=== PATIENT | female | born 1950 | race Caucasian/White ===

== ENCOUNTER 2018-10-05 08:46 | Day surgery (SDC) | payer OTHER, SELFPAY ==
--- NOTE | 2018-09-25 14:26 | HP.PCM_ITS ---
History and Physical Date of Admission: 09/25/18 Pre-Op History and Physical ? HPI: The patient is a 68 year old female presenting for pre-operative visit. She is scheduled for hysteroscopy D&C and poossible polypectomy, for PMB, likely polyp on 09/28/18. ??Procedure discussed along with risks, benefits and complications. ?Other alternatives discussed for management. Consent form signed? Yes. ? ? ? PAST MEDICAL HISTORY PAST MEDICAL HISTORY Diagnosis Date ? Obesity ? ? ? PAST SURGICAL HISTORY PAST SURGICAL HISTORY Procedure Laterality Date ? DELIVERY ONLY ? ? ? , low transverse x 2 ? HYSTEROSCOPY BX W/WO D&C ? 2013 ? PAST SURGICAL HISTORY OF ? 2010 ? left knee arthroscope ? REMOVAL ADENOIDS,PRIMARY,<12 Y/O ? ? ? Adenoidectomy ? REMOVAL OF TONSILS,<12 Y/O ? ? ? Tonsillectomy ? ? CURRENT MEDICATIONS ? Current Outpatient Prescriptions: VITAMIN E ORAL Take by mouth. Disp: Rfl: ascorbic acid (VITAMIN C ORAL) Take by mouth. Disp: Rfl: cholecalciferol, vitamin D3, (VITAMIN D3 ORAL) Take by mouth. Disp: Rfl: medroxyPROGESTERone (PROVERA) 10 mg tablet Take 1 tablet by mouth once daily for 10 days. (Patient not taking: Reported on 09/25/2018 ) Disp: 10 tablet Rfl: 0 ? No current facility-administered medications for this visit. ? ALLERGIES: Patient has no known allergies. ? PERSONAL HISTORY: SOCIAL HISTORY Social History ??Marital status: ?Spouse name: ?Years of education: ?Number of children: ? Occupational History Occupation ?Employer ?Comment ? [employer]ARD OF [employer]* ? Social History Main Topics ??Smoking status: Current Some Day Smoker ?Packs/day: 0.00 ?Years: 0.00 ?Smokeless tobacco: Never Used ?Alcohol use: Yes ?Comment: occ ??Drug use: No ?Sexual activity: No ? Social History Narrative ?? to Floyd, dtr Jazz and son Kee, 3 grandchildren and [address] (granddtr from [place]ee due May 2015) ? ? FAMILY HISTORY: FAMILY HISTORY FAMILY HISTORY Problem Relation Age of Onset ? Heart Mother ? at 90 ? Kidney Disease Father ? ? Heart Father ? 89 ? Colon Cancer Maternal Grandfather ? ? REVIEW OF SYMPTOMS: GENERAL: denies fevers or chills ENDOCRINOLOGY: has not been on steroids Cardiology : denies palpitations or chest pain Respiratory: denies SOB or cough Hematology: denies history of prolonged bleeding or easy bruising or VTE Allergy: Denies history of personal or family history of allergy to anesthesia ? ? PHYSICAL EXAMINATION: ? VITALS: There were no vitals taken for this visit. ? GENERAL: ?The patient is well nourished, well hydrated in no acute distress. ?, The patient is oriented to time, place, and person. NECK: Supple. No lynphadenopathy, normal thyroid, no thyromegaly. LUNGS: Clear to auscultation bilaterally. no wheezes, rhonchi or rales HEART: Regular rate and rhythm, Normal heart sounds and No murmurs or gallops ? IMPRESSION: PMB, endometrial polyp ? PLAN: ??The risks/benefits/alternatives and personal involved for the planned hysteroscopy dilation and curettage and possible polyp resection?were reviewed with the patient. Her questions were answered to her satisfaction and she desires to proceed. ?Consent was signed. ?I reviewed with her postop instructions and expectations. ? ? I have reviewed and updated past medical and surgical history, medications and allergies Jackie Mustafa M.D.
--- NOTE | 2018-10-05 | IMM_PTH ---
PATIENT: GRACIE TEJADA [place] [facility] [place][id number] AGE/SX: 68/F ROOM: RE10/05/[address]: Dr. Jackie Mustafa MD : 1950 BED: DIS: 10/05/2018 SPEC #: [id number] RECD: 10/09/18 13:09 STATUS: MERRY RELukas #: [id number] MAINOR: 10/05/18 00:[address]: Jackie Mustafa DEPT: IMMUNOHISTOCHEMISTRY RECD BY: Shaunna Isidro ENTERED: 10/09/18 13:10 SP TYPE: IMMUNO OTHR DR: Dr. Demetri Andrews, DO Tissues: Endometrium, NOS Procedures: SMA (add) CK19 (add) DESMIN (add) ENRIQUE (add) KI-67 (add) P53 (add) Vimentin (add) SMM (add) Pankeratin (initial) PHYSICIAN & INSTITUTION [place] [address] SPECIMEN INFORMATION: Tissue Source: Endometrial curettings and polyp Clinical Info: Postmenopausal bleeding, endometrial polyp Specimen Number: [id number] #2 CPT code: 75727, 86495 x8 METHODOLOGY: Deparaffinized sections of prefer/formalin-fixed tissue or PAP/DQ stained slides are incubated with monoclonal/polyclonal antibodies/oligonucleotide probes. Localization is made via biotin free immunoperoxidase method. Appropriate controls are performed and reacted as expected. Results on target cell population are indicated in the following table: RESULTS: ANTIBODY / CLONE RESULT Block 2 AE1-3 (AE1/AE3/PCK26) positive, focal Actin (1A4) positive Vimentin (V9) positive Myosin (simms1) positive Desmin (CE-R-11) positive CK19 (A53-B/A2.26) positive, focal Ki-67 (30-9) positive, low ENRIQUE (E29) negative P53 (DO-7) positive, focal These tests were developed and their performance characteristics determined by [facility]. They may not have been cleared or approved by the U.S. Food and Drug Administration. The FDA has determined that such clearance or approval is not necessary. INTERPRETATION: Endometrial curettings and polyp: Consistent with fragments of symplastic leiomyoma. AM:anahi 10/10/18 Case has been reviewed in consultation with Dr. Lazar who concurs with the above diagnosis. IDC:DARIUSZ
--- NOTE | 2018-10-05 | EMB_PTH ---
PATIENT: GRACIE TEJADA LOC: [facility] – [place] U#:[id number] AGE/SX: 68/F ROOM: RE10/05/[address]: Dr. Jackie Mustafa MD : 1950 BED: DIS: 10/05/2018 SPEC #: [id number] RECD: 10/05/18 09:36 STATUS: MERRY JORDON #: [id number] MAINOR: 10/05/18 00:[address]: Jackie Mustafa DEPT: SURGICAL PATHOLOGY RECD BY: Guy Mojica ENTERED: 10/06/18 09:37 SP TYPE: ENDOM BX/C GABRIELE DR: Dr. Demetri Andrews, DO Tissues: Endometrium, NOS Procedures: Surgery Specimen Level IV HEADER OPERATION: Hysteroscopy, D & C, polyp resection PRE-OP DIAGNOSIS: Postmenopausal bleeding, endometrial polyp TISSUE SUBMITTED: Endometrial curettings and polyp MICROSCOPIC DIAGNOSIS Endometrial polyp and curettings: Polypoid fragments of endometrium with simple hyperplasia without atypia. Fragments of myometrial stromal nodule with changes suggestive of a symplastic leiomyoma. See comment. AM:anahi 10/09/18 COMMENT Immunohistochemistry ([id number]) supports the above diagnosis. Case has been reviewed in consultation with Dr. Lazar who concurs with the above diagnosis. IDC:DARIUSZ MICROSCOPIC DESCRIPTION Slides are reviewed. GROSS DESCRIPTION Received in fixative is one container labeled with the patient's name and designated endometrial curettings and polyp. The specimen consists of multiple irregular fragments of hancock, indurated tissue mixed with blood clot that in aggregate measure 5 x 3 x 0.3 cm. The entire specimen is submitted in two cassettes. / DARIUSZ:anahi 10/06/18 TC:? CPT: 46199 ADDENDUM ADDENDUM 10/11/2018 10:42 ADDENDUM 10/11/2018 10:42 ADDENDUM 10/11/2018 10:42 ADDENDUM 10/11/2018 10:42 ADDENDUM 10/31/2018 09:49 ADDENDUM 10/11/2018 10:42 This case was reviewed and diagnosis discussed with Dr. Mustafa on 10/11/18 at 9:45 a.m. This addendum is added to incorporate an outside pathology consultation report. The case was examined at [facility] (#[id number]) and the following diagnosis was rendered. Endometrial polyp and curettings: Fragments of endometrial polyp. Fragments of inactive endometrium with focal stromal pseudo-decidualization consistent with exogenous progestin effect. Fragments of smooth muscle tumor with atypia. Please see complete above mentioned consultation report in EMR
[2018-10-05 09:26] LABS: Hemoglobin 12.8 g/dl (12.0-15.0); Mean Corpuscular Hgb 26.1 pg (27.0-32.0); Mean Corpuscular Volume 81.5 fL (81-99); Platelet Count 334 K/mm3 (150-450); RBC Distribution Width CV 14.7 % (11.6-14.6); RBC Distribution Width SD 43.7 fl (35.1-43.9); Red Blood Count 4.91 M/mm3 (4.2-5.4); Scan Indicated on CBC? Y/N NO; White Blood Count 7.6 K/mm3 (4.4-11.0)
[2018-10-05 09:37] LABS: Anion Gap 9 (5-15); BUN 17 mg/dL (7-18); BUN/Creat Ratio 20.8 RATIO (10-20); Calcium,Total 8.7 mg/dL (8.5-10.1); Chloride 106 mmol/L (98-107); Creatinine, Serum 0.82 mg/dL (0.55-1.02); EST Glomerular Filtration Rate 74 mL/min (>60); Est Glom Filt Rate - Afr Amer 89 mL/min (>60); Glucose 103 mg/dL (74-106); Potassium 4.1 mmol/L (3.5-5.1); Sodium Level 138 mmol/L (136-145)
[2018-10-05 09:44] VITALS: BP 182/66; PULSE 84; RESP 18; TEMP 36.8; O2SAT 99; BMI 37.6
[2018-10-05 12:04] VITALS: BP 139/85; BP 182/66; PULSE 71; RESP 18; TEMP 36.4; O2SAT 96
--- NOTE | 2018-10-05 12:09 | DCINST_ITS ---
Discharge Diet: No Restrictions Discharge Activity: Return to Normal Activity, May Shower, May Take a Tub Bath - in 2 weeks. Return to work on:: 10/09/18 May shower in (days): 1 May resume sexual activity in: 2 weeks Call your doctor if your incision/area has: Continuous Slow Oozing, Sudden Increased Bleeding, Foul Smelling Discharge Call your doctor if you observe: Fever of 101 or Higher, Using more than one pad per hour - for 2 hrs peter row Allergies/Adverse Reactions: Allergies No Known Allergies Allergy (Verified 09/21/18 13:50) Medications to take at Discharge Ascorbic Acid [Vitamin C] 1,000 mg PO DAILY 09/21/18 Eye Vitamin 1 cap PO DAILY 09/21/18 Vitamin E 400 unit PO DAILY 09/21/18 Ibuprofen [Motrin] 600 mg PO Q6H PRN #60 tablet 10/05/18 Oxycodone HCl/Acetaminophen [Percocet 5/325] 1 - 2 tablet PO Q8 PRN 3 Days #8 tablet 10/05/18 The following prescriptions were given: Oxycodone HCl/Acetaminophen [Percocet 5/325] 1 - 2 tablet PO Q8 PRN 3 Days #8 tablet PRN Reason: Pain Ibuprofen [Motrin] 600 mg PO Q6H PRN #60 tablet PRN Reason: Pain Primary Care Physician: Demetri Andrews DO [Primary Care Provider] - Test Results: Test results from this visit will be discussed in further detail at your follow- up appointment, if applicable.
--- NOTE | 2018-10-05 12:13 | OP.PCM_ITS ---
Report of Operation Date of Procedure: 10/05/18 Pre-Operative Diagnosis: Postmenopausal bleeding, thickened endometrium Post-Operative Diagnosis: Same this endometrial polyp and submucosal uterine fibroid Surgery/Procedure Performed:: Ostomy dilation and curettage with resection of endometrial polyp and partial resection of fibroid Description of Surgical Findings:: Normal-appearing cervix and vagina, endometrial cavity with polypoid appearing lesion in the fundus x2 that were small. Some hypertrophy of the endometrium in the lower uterine segment, on the left lateral uterine wall there appeared to be a submucosal fibroid extending into the cavity violent crimes detective: None Type of Anesthesia:: General Anesthesiologist: Sue Shook Special Medications: None Specimen's removed: Endometrial curettings and polyp Drains: None Estimated Blood Loss (mL): 40 Fluids Replaced: 1200 cc Description of Procedure: The patient was taken to the OR where she was prepped and draped in dorsal lithotomy position. The weighted speculum was placed in the vagina and the anterior lip of the cervix was grasped with a single-tooth tenaculum. A paracervical block was administered with [1% lidocaine with 1-100,000 epinephrine solution]. The cervix was dilated serially with Hegar dilators. The [5mm] hysteroscope was placed into the uterine cavity and the above findings were noted. Bilateral tubal ostia [were] identified. The hysteroscope was removed. The Symphion device was readied and inserted. After approximately 1 minute of resection with this device, the device that it detected a leak. We attempted to resect the device but were unable to get good flow through the tubing. Used a minimal amount of fluid from the bag at this point. The decision was made to convert to the [facility] hysteroscopic resection device. This device was set up and readied and I used the loop to resect the endometrium throughout the cavity and the polyps. I also shaved off part of the submucosal fibroid to make the cavity shape normal. The instruments were removed from the vagina. The specimen was handed off and sent to pathology. All sponge and needle counts were correct. Vaginal sweep was performed by me. The patient was awakened and taken to the recovery room in stable condition. Hysteroscopic ins: 2000cc normal saline Hysteroscopic outs:1600cc Grafts/Implants Used: None - Complications None
[2018-10-05 12:15] VITALS: BP 127/82; BP 182/66; PULSE 67; RESP 18; O2SAT 99
[2018-10-05 12:20] VITALS: BP 129/77; BP 182/66; PULSE 65; RESP 18; TEMP 36.6; O2SAT 95
[2018-10-05 12:40] VITALS: BP 182/66
== END 2018-10-05 13:33 | disposition home or self-care (01) ==
LOC: SDC 08:49 → AC 08:55
PROVIDERS: Family Provider Student in an Organized Health Care Education/Training Program; PCP Student in an Organized Health Care Education/Training Program; Referring Provider Obstetrics & Gynecology; Visit Provider Obstetrics & Gynecology
PROC: 0UB98ZZ Excision of Uterus, Via Natural or Artificial Opening Endoscopic (ICD-10-PCS; CPT 58558; principal; 2018-10-05 09:55)
DX: N84.0 Polyp of corpus uteri (principal); N95.0 Postmenopausal bleeding; D25.0 Submucous leiomyoma of uterus; F17.200 Nicotine dependence, unspecified, uncomplicated
CPT/HCPCS: 00952; 58558; 36415; 80048; 85027; 86850; 86900; 88305; 88341; 88342; J7120; J2405

== ENCOUNTER 2018-11-16 14:45 | Observation (INO) | payer OTHER, SELFPAY ==
--- NOTE | 2018-11-10 11:09 | PCM.HP.BLA ---
History and Physical Date of Admission: 11/16/18 Pre-Op History and Physical HPI: The patient is a 68 year old female presenting for pre-operative visit. She is scheduled for TVH with BSO, uterosacral ligament fixation, cystoscopy and possible laparoscopy for ovary removal, for persistent postmenopausal bleeding, uterine fibroids, leiomyoma w/ bizzare nuclei on 11/16/18. Procedure discussed along with risks, benefits and complications. Other alternatives discussed for management. Consent form signed? Yes. PAST MEDICAL HISTORY Diagnosis Date ? Obesity PAST SURGICAL HISTORY Procedure Laterality Date ? DELIVERY ONLY , low transverse x 2 ? HYSTEROSCOPY BX W/WO D&C 2013 ? HYSTEROSCOPY, SURGICAL; WITH SAMPLI 10/06/2018 hysteroscopy D&C w/ polypectomy and had large submucosal fibroid ? PAST SURGICAL HISTORY OF 2010 left knee arthroscope ? REMOVAL ADENOIDS,PRIMARY,<12 Y/O Adenoidectomy ? REMOVAL OF TONSILS,<12 Y/O Tonsillectomy Current Outpatient Medications: azithromycin (ZITHROMAX Z-GUNNAR) 250 mg tablet Take 2 tablets day one, then, 1 tablet daily until gone. Disp: 1 Package Rfl: 0 VITAMIN E ORAL Take by mouth. Disp: Rfl: ascorbic acid (VITAMIN C ORAL) Take by mouth. Disp: Rfl: cholecalciferol, vitamin D3, (VITAMIN D3 ORAL) Take by mouth. Disp: Rfl: No current facility-administered medications for this visit. ALLERGIES: Patient has no known allergies. PERSONAL HISTORY: Social History Socioeconomic History Marital status: Spouse name: Not on file Number of children: Not on file Years of education: Not on file Highest education level: Not on file Social Needs Financial resource strain: Not on file Food insecurity - worry: Not on file Food insecurity - inability: Not on file Transportation needs - medical: Not on file Transportation needs - non-medical: Not on file Occupational History Occupation: CLAIMS REPRESENTATIVE Employer: [employer] Tobacco Use Smoking status: Current Some Day Smoker Smokeless tobacco: Never Used Substance and Sexual Activity Alcohol use: Yes Comment: occ Drug use: No Sexual activity: Never Other Topics Concerns: Not on file Social History Narrative to Floyd, javan Schulz and son Kee, 3 grandchildren [address] (granddtr from [place] due May 2015) FAMILY HISTORY: FAMILY HISTORY Problem Relation Age of Onset ? Heart Mother at 90 ? Kidney Disease Father ? Heart Father 89 ? Colon Cancer Maternal Grandfather REVIEW OF SYMPTOMS: GENERAL: denies fevers or chills ENDOCRINOLOGY: has not been on steroids Cardiology : denies palpitations or chest pain Respiratory: denies SOB, some mild cough, has URI at this time, non productive Hematology: denies history of prolonged bleeding or easy bruising or VTE Allergy: Denies history of personal or family history of allergy to anesthesia PHYSICAL EXAMINATION: VITALS: There were no vitals taken for this visit. GENERAL: The patient is well nourished, well hydrated in no acute distress. , The patient is oriented to time, place, and person. NECK: Supple. No lynphadenopathy, normal thyroid, no thyromegaly. LUNGS: Clear to auscultation bilaterally. no wheezes, rhonchi or rales HEART: Regular rate and rhythm, Normal heart sounds and No murmurs or gallops 1. Neoplasm, uncertain whether benign or malignant 2. Intramural and submucous leiomyoma of uterus 3. PMB (postmenopausal bleeding 4. First degree uterine prolapse PLAN: The risks/benefits/alternatives and personal involved for the planned TVH, BSO, possible laparascopy, USLF and cystoscopy were reviewed with the patient. Her questions were answered to her satisfaction and she desires to proceed. Consent was signed. I reviewed with her postop instructions and expectations. I have reviewed and updated past medical and surgical history, medications and allergies Jackie Mustafa M.D.
[2018-11-16] VITALS (13 sets, daily range): BP systolic 88–131; BP diastolic 44–80; PULSE 66–95; RESP 16–18; TEMP 35.8–36.7; O2SAT 95–100; BMI 38.2
--- NOTE | 2018-11-16 08:19 | EKG12_ITS ---
Test Reason : PREOP Blood Pressure : / mmHG Vent. Rate : 075 BPM Atrial Rate : 075 BPM P-R Int : 130 ms QRS Dur : 084 ms QT Int : 404 ms P-R-T Axes : -01 032 074 degrees QTc Int : 451 ms Normal sinus rhythm Normal ECG When compared with ECG of 05-AUG-2010 11:37, No significant change was found Confirmed by PATRICIA VELEZ, VANESSA ([id number]), tape editor LANDEN HALL ([id number]) on 11/20/2018 1:16:35 PM Referred By: Jackie Mustafa Confirmed By:VANESSA GOMEZ MD
[2018-11-16] MEDS: Phenazopyridine 95 MG Tablet 190 MG PO (08:42)
[2018-11-16] MEDS: Celecoxib 200 MG Capsule 400 MG PO (08:45)
[2018-11-16] MEDS: Acetaminophen 500 MG Tablet 1000 MG PO ×2 (08:45→18:28)
[2018-11-16] MEDS: Magnesium Sulfate 4gm/100mL 4 GM/100 ML IV.SOLN. IV (08:46)
[2018-11-16] MEDS: Lactated Ringers 1,000 ML 40 ML IV ×2 (08:48→15:38)
[2018-11-16] MEDS: Gabapentin 600 MG Tablet PO (08:50)
[2018-11-16] MEDS: Scopolamine 1mg/72hr Patch 1 PATCH TRANSDERM. (09:00)
[2018-11-16 09:06] LABS: Bedside Glucose 96 mg/dL (70-110)
[2018-11-16] MEDS: Enoxaparin 40 MG/0.4 ML Syringe SC (09:44)
--- NOTE | 2018-11-16 10:05 | HYST_PTH ---
PATIENT: GRACIE TEJADA LOC: [facility] U#:[id number] AGE/SX: 68/F ROOM: [facility]312 RE11/16/[address]: Dr. Jackie Mustafa MD : 1950 BED: 1 DIS: 11/17/2018 SPEC #: [id number] RECD: 11/17/18 07:32 STATUS: MERRY RELukas #: [id number] MAINOR: 11/16/18 10:[address]: Jackie Mustafa DEPT: SURGICAL PATHOLOGY RECD BY: Franky Bennett ENTERED: 11/17/18 10:03 SP TYPE: HYSTERECT OTHR DR: Dr. Demetri Andrews, DO Tissues: Uterus, NOS Procedures: Surgery Specimen Level V HEADER OPERATION: Vaginal hysterectomy converted to laparoscopy, bilateral salpingo-oophorectomy PRE-OP DIAGNOSIS: Atypical uterine fibroid, postmenopausal bleeding TISSUE SUBMITTED: Uterus, cervix, bilateral fallopian tubes and ovaries MICROSCOPIC DIAGNOSIS Uterus, hysterectomy: Cervix - nabothian cysts and mild chronic inflammation. Endometrial polyp - simple hyperplasia without atypia. Endometrium - weakly proliferative to inactive endometrium. Myometrium - leiomyomas with focal symplastic change and adenomyosis. Right fallopian tube - no pathologic change. Right ovary - benign inclusion cyst and corpora albicantia. 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 AM:anahi 11/20/18 COMMENT A small portion of fimbrial end of left fallopian tube is attached to the left ovary. Clinical correlation is suggested. Case has been reviewed in consultation with Dr. Lazar who concurs with the above diagnosis. IDC:SJ MICROSCOPIC DESCRIPTION Slides are reviewed. GROSS DESCRIPTION Received in fixative is one container labeled with the patient's name and designated uterus. The specimen consists of a hysterectomy specimen containing a uterus and cervix. The uterus with attached cervix measures 11 x 8.5 x 6 cm and weighs 175 gm. The endocervical canal measures 3.3 cm in length and is grossly unremarkable. The triangular endometrial cavity measures 4.5 x 4.2 cm. A polypoid, pink-white mass measuring 5 x 4 x 3.8 cm in present attached to the posterior endometrium involving the myometrium. The myometrium measures 2 cm in greatest thickness and contains several rubbery, pink-white nodules resembling leiomyomas ranging in size from 0.5 to 2 cm in greatest dimension. The anterior endometrial surface contains a smooth, fleshy, reddish-hancock polyp measuring 2 x 1.5 x 0.2 cm. Serial sections of the mass occupying the endometrial cavity and involving the myometrial wall reveals rubbery cut surfaces that are lobulated, pink-white in color and free of cysts measuring 4 cm in length and 0.5 cm in average diameter. No tubo-ovarian adhesions are present. The right ovary is pink-white and has a crinkled external surface and measures 2 x 1.5 x 1.2 cm. Present free in the container is a fragment of crinkled white-hancock tissue resembling an ovary measuring 2.2 x 1.5 x 1.2 cm. Serial sections of both ovaries do not reveal mass lesions. A left fallopian tube is not identified in the specimen container or attached to the uterus. Technician Preventative Medicine sections are submitted as follows: 1 - anterior and posterior cervix (posterior inked black), 2 - endometrial polyp anterior surface, 3 & 4 - anterior uterine wall with leiomyoma, 5 & 6 - posterior uterine wall with leiomyoma, 7-9 - large mass occupying endometrial cavity, 10 - right fallopian tube and ovary, 11 - presumed left ovary. / AM:anahi 11/17/18 TC:1 CPT: 49515
[2018-11-16] MEDS: Cefazolin 2 GM in 0.9% Normal Saline 100 ML IV (11:12)
--- NOTE | 2018-11-16 11:31 | DCINST_ITS ---
Discharge Diet: No Restrictions Discharge Activity: Return to Normal Activity, May Not Drive - while taking narcotic pain medications., May Shower May shower in (days): 1 May resume sexual activity in: 6-8 weeks Call your doctor if your incision/area has: Continuous Slow Oozing, Sudden Increased Bleeding, Increased Pain/ Swelling, Increased Redness, Foul Smelling Discharge Call your doctor if you observe: Fever of 101 or Higher, Inability to urinate, Inability to have a bowel movement, Using more than one pad per hour Allergies/Adverse Reactions: Allergies No Known Allergies Allergy (Verified 11/16/18 08:53) Medications to take at Discharge Ascorbic Acid [Vitamin C] 1,000 mg PO DAILY 09/21/18 Eye Vitamin 1 cap PO DAILY 09/21/18 Vitamin E 400 unit PO DAILY 09/21/18 Ibuprofen [Motrin] 600 mg PO Q6H PRN #60 tablet 10/05/18 Oxycodone HCl/Acetaminophen [Percocet 5-325] 1 - 2 tablet PO Q8 PRN 7 Days #21 tablet 11/16/18 The following prescriptions were given: Oxycodone HCl/Acetaminophen [Percocet 5-325] 1 - 2 tablet PO Q8 PRN 7 Days #21 tablet PRN Reason: Moderate-Severe pain Primary Care Physician: Demetri Andrews DO [Primary Care Provider] - Test Results: Test results from this visit will be discussed in further detail at your follow- up appointment, if applicable. Please Follow Up With: Jackie Mustafa MD - [phone] When: in [facility] office 1-2 and 6 weeks or as needed
--- NOTE | 2018-11-16 14:43 | PCM.OPRPT ---
Report of Operation Date of Procedure: 11/16/18 Pre-Operative Diagnosis: Postmenopausal bleeding, uterine fibroids Post-Operative Diagnosis: Same Surgery/Procedure Performed:: Laparoscopic assisted vaginal hysterectomy with bilateral salpingo-oophorectomy Description of Surgical Findings:: Enlarged boggy uterus, normal-appearing tubes and ovaries. Normal peritoneal cavity. Normal bladder airline transport pilot: Lynnette Nevarez Type of Anesthesia:: General Anesthesiologist: Sarah Irene Special Medications: none Specimen's removed: Uterus, cervix, bilateral tubes and ovaries Drains: Tejeda Estimated Blood Loss (mL): 400 Fluids Replaced: 1500 Grafts/Implants Used: none - Complications none - Admit VTE Documentation VTE Present on Admission: No VTE Mechan Device Prophylaxis: SCD's VTE Pharm Prophylaxis ordered?: Yes
--- NOTE | 2018-11-16 14:46 | OP.PCM_ITS ---
Report of Operation Date of Procedure: 11/16/18 Pre-Operative Diagnosis: Postmenopausal bleeding, uterine fibroids Post-Operative Diagnosis: Same Surgery/Procedure Performed:: Laparoscopic assisted vaginal hysterectomy with bilateral salpingo-oophorectomy Description of Surgical Findings:: Enlarged boggy uterus, normal-appearing tubes and ovaries. Normal peritoneal cavity. Normal bladder rhinestone setter: Lynnette Nevarez Type of Anesthesia:: General Anesthesiologist: Sarah Irene Special Medications: none Specimen's removed: Uterus, cervix, bilateral tubes and ovaries Drains: Tejeda Estimated Blood Loss (mL): 400 Fluids Replaced: 1500 Grafts/Implants Used: none - Complications none - Admit VTE Documentation VTE Present on Admission: No VTE Mechan Device Prophylaxis: SCD's VTE Pharm Prophylaxis ordered?: Yes
[2018-11-16] MEDS: Ketorolac 30 MG/ML Syringe IV (15:38)
[2018-11-16 18:39] LABS: Hematocrit 33.1 % (37-47); Hemoglobin 10.1 g/dl (12.0-15.0); Mean Corp Hgb Conc 30.5 g/gl (32-36); Mean Corpuscular Hgb 25.3 pg (27.0-32.0); Mean Platelet Vol. 9.2 fl (6.2-12.0); Platelet Count 363 K/mm3 (150-450); RBC Distribution Width CV 13.8 % (11.6-14.6); RBC Distribution Width SD 40.8 fl (35.1-43.9); Red Blood Count 3.99 M/mm3 (4.2-5.4); White Blood Count 19.4 K/mm3 (4.4-11.0)
[2018-11-16 18:48] LABS: Scan Indicated on CBC? Y/N NO
[2018-11-16] MEDS: Docusate Sodium 100 MG Capsule PO (21:36)
[2018-11-16] MEDS: Ketorolac 15 MG/ML Vial IV (21:36)
[2018-11-17] MEDS: Acetaminophen 500 MG Tablet 1000 MG PO ×3 (00:22→11:17)
[2018-11-17 03:30] VITALS: BP 90/39; PULSE 91; RESP 16; TEMP 36.8; O2SAT 94
[2018-11-17] MEDS: Lactated Ringers 1,000 ML 70 ML IV (03:45)
[2018-11-17] MEDS: Ketorolac 15 MG/ML Vial IV ×2 (03:46→09:02)
[2018-11-17 05:30] VITALS: BP 130/33; PULSE 80; RESP 16; TEMP 36.6; O2SAT 93
[2018-11-17 07:40] VITALS: O2SAT 96
--- NOTE | 2018-11-17 08:51 | PCM.PN.OB ---
Subjective: Pain well controlled, no significant vaginal bleeding. No nausea or vomiting. Tolerating regular diet. Has ambulated. - Physical Exam General: Cooperative, No apparent distress Abdomen: Soft, Distended - Minimally, softly., Tender - Appropriately Extremities: No edema Skin: Incision - cLean dry and intact, - - Vaginal packing was removed with moderate amount of sanguinous drainage on it. Vital Signs Temp Pulse Resp BP Pulse Ox 98 F 80 16 130/33 H 96 11/17/18 05:30 11/17/18 05:30 11/17/18 05:30 11/17/18 05:30 11/17/18 07:40 Oxygen Flow Rate (L/min) 6 Oxygen Delivery Method Room Air Weight: 94.9 kg Body Mass Index (BMI) 38.2 Intake and Output for Last 24 Hours 11/15/18 11/16/18 11/17/18 23:59 23:59 23:59 Intake Total 2470 / 2470 2717 / 2717 Output Total 230 / 230 1200 / 1200 Balance 2240 / 2240 1517 / 1517 Laboratory Tests Past 24 Hrs 11/16/18 11/16/18 08:40 18:25 WBC 19.4 H RBC 3.99 L Hgb 10.1 L Hct 33.1 L MCV 83.0 MCH 25.3 L MCHC 30.5 L RDW 13.8 RDW Differential 40.8 Plt Count 363 MPV 9.2 Blood Type O POSITIVE Antibody Screen NEGATIVE POC Glucose 11/16/18 09:00 POC Glucose 96 Medical Necessity - Tobacco Use Smoking Status: Former smoker Tobacco Use: Non-smoker Assessment/Plan Postoperative day #1 status post laparoscopic-assisted vaginal hysterectomy with bilateral salpingo-oophorectomy. Operative course and findings were reviewed. Morning labs are pending. Will review those. If patient is able to ambulate and tolerate regular diet, can be discharged home later this a.m. or later today. Pathology is pending.
[2018-11-17 09:00] VITALS: BP 107/52; PULSE 74; RESP 16; TEMP 36.4; O2SAT 95
[2018-11-17] MEDS: Enoxaparin 40 MG/0.4 ML Syringe SC (09:02)
[2018-11-17] MEDS: Docusate Sodium 100 MG Capsule PO (09:02)
[2018-11-17 09:03] LABS: Hematocrit 27.4 % (37-47); Hemoglobin 8.2 g/dl (12.0-15.0); Mean Corp Hgb Conc 29.9 g/gl (32-36); Mean Corpuscular Hgb 25.1 pg (27.0-32.0); Mean Corpuscular Volume 83.8 fL (81-99); Mean Platelet Vol. 9.1 fl (6.2-12.0); Platelet Count 351 K/mm3 (150-450); RBC Distribution Width SD 40.7 fl (35.1-43.9); Red Blood Count 3.27 M/mm3 (4.2-5.4); Scan Indicated on CBC? Y/N NO; White Blood Count 17.9 K/mm3 (4.4-11.0)
[2018-11-17 09:27] LABS: Anion Gap 7 (5-15); BUN 25 mg/dL (7-18); BUN/Creat Ratio 25.2 RATIO (10-20); Calcium,Total 7.9 mg/dL (8.5-10.1); Chloride 106 mmol/L (98-107); Creatinine, Serum 0.99 mg/dL (0.55-1.02); EST Glomerular Filtration Rate 59 mL/min (>60); Est Glom Filt Rate - Afr Amer 71 mL/min (>60); Estimated Creatinine Clearance 42.42 ml/min; Glucose 106 mg/dL (74-106); Potassium 4.9 mmol/L (3.5-5.1); Sodium Level 139 mmol/L (136-145)
--- NOTE | 2018-11-17 12:32 | PCM.PN.BLA ---
Progress Note Up date from nursing- Patient joe. regular diet. Ambulated without difficulty. Feels ready for d/c. No lightheadedness. HGB decreased appropriate for EBL w/ surgery and dilutional effect. Tolerating well. Ok to d/c home, push fluids
[2018-11-17 12:39] VITALS: BP 100/65; PULSE 78; RESP 16; TEMP 36.6; O2SAT 99
== END 2018-11-17 12:58 | disposition home or self-care (01) ==
LOC: MS3 11-17 05:27 → SDC 11-17 06:44
PROVIDERS: Admitting Provider Obstetrics & Gynecology; Family Provider Student in an Organized Health Care Education/Training Program; PCP Student in an Organized Health Care Education/Training Program; Referring Provider Obstetrics & Gynecology; Visit Provider Obstetrics & Gynecology
PROC: (CPT 58260; principal; 2018-11-16 09:45)
DX: D25.1 Intramural leiomyoma of uterus (principal); D25.0 Submucous leiomyoma of uterus; N99.71 Accidental puncture and laceration of a genitourinary system organ or structure during a genitourinary system procedure; Y65.8 Other specified misadventures during surgical and medical care; Y92.234 Operating room of hospital as the place of occurrence of the external cause; N85.01 Benign endometrial hyperplasia; D27.1 Benign neoplasm of left ovary; E66.9 Obesity, unspecified; Z68.38 Body mass index [BMI] 38.0-38.9, adult; Z71.3 Dietary counseling and surveillance; N81.2 Incomplete uterovaginal prolapse; Z87.891 Personal history of nicotine dependence; Z79.899 Other long term (current) drug therapy
CPT/HCPCS: 00940; 58552; 36415; 80048; 82962; 85027; 86850; 86900; 88307; 93005; 96372; 96374; 96375; 96376; 99218; J7120; G0378; G0379; J2405